=== PATIENT | male | born 1930 | race Caucasian/White ===

== ENCOUNTER 2019-05-04 12:14 | Emergency (ER) | payer MEDICARE ==
[2019-05-04 12:37] LABS: #Basophils 0.1 thou/uL (0.0-0.2); #Lymphocytes 0.7 thou/uL (1.20-3.40); #Monocytes 0.4 thou/uL (0.11-0.59); %Basophils 1.5 % (0.0-1.0); %Eosinophils 0.6 % (0.0-10.0); %Monocytes 9.8 % (0.0-10.0); %Neutrophils 71.1 % (42.0-75.0); Hemoglobin 10.1 g/dL (14.0-18.0); Mean Corpuscular Hemoglobin 30.2 pg (27.0-31.0); Mean Corpuscular Volume 97.4 fL (78.0-98.0); Mean Platelet Volume 5.5 fL (7.4-10.4); Platelet Count 181 thou/uL (130-400); RBC Distribution Width 15.8 % (11.5-14.5); Red Blood Cell (RBC) Count 3.34 mill/uL (4.70-6.10); White Blood Cell (WBC) Count 4.2 thou/uL (4.8-10.8)
[2019-05-04 12:53] LABS: ALT (SGPT) 9 U/L (8-55); AST (SGOT) 16 U/L (5-34); Albumin 3.9 g/dL (3.4-4.8); Alkaline Phosphatase 111 U/L (40-150); Anion Gap 18 mmol/L (10-20); BUN (Urea Nitrogen) 29 mg/dL (8.4-25.7); Bilirubin, Total 1.7 mg/dL (0.2-1.2); Calc. Creatinine Clearance 0 mL/min (70-130); Calcium 9.7 mg/dL (7.8-10.44); Carbon Dioxide 24 mmol/L (23-31); Chloride 101 mmol/L (98-107); Estimated GFR-MDRD 43; Globulin 5.3 g/dL (2.4-3.5); Glucose 95 mg/dL (83-110); Potassium 5.5 mmol/L (3.5-5.1); Protein, Total 9.2 g/dL (5.8-8.1); Sodium 137 mmol/L (136-145)
[2019-05-04] MEDS ORDERED: Lidocaine 1% PF 5 ML VIAL ONE (15:20)
--- NOTE | 2019-05-04 17:25 | RAD ---
PORTABLE CHEST: 05/04/19 No prior films were available for comparison. 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 The heart is mildly enlarged. There are diffuse interstitial changes and prominence of the vessels al cassandra with prominent bilateral pleural effusions. Congestive change is assumed. Each side is reasonably symmetrical with respect to the other. There is perhaps a little more fluid on the right than the le ft. IMPRESSION: CHF with a moderately significant amount of pleural fluid bilaterally. POS: HOME
== END 2019-05-04 13:12 | disposition home or self-care (01) ==
LOC: BURERS 12:14
DX: I50.9 Heart failure, unspecified (principal); R09.3 Abnormal sputum; Z79.01 Long term (current) use of anticoagulants; Z79.899 Other long term (current) drug therapy
CPT/HCPCS: 36415; 71045; 80053; 83880; 85025; 93005; J2001